=== PATIENT | male | born 1945 | race Caucasian/White ===

== ENCOUNTER 2018-12-27 12:48 | Emergency (ER) | payer MEDICARE, BC ==
[2018-12-27 12:54] VITALS: BP 133/65
--- NOTE | 2018-12-27 13:01 | ED Physician Documentation ---
PD HPI OPHTHO - Stated complaint Stated Complaint: R EYE IRRITATION - Chief complaint Chief Complaint: Heent - History obtained from History obtained from: Patient - History of Present Illness Timing - onset: Other (He noted painless discoloration of the white of the eye laterally about 2 days ago. His vision is not affected. He does not remember specific injury.) Review of Systems Constitutional: reports: Reviewed and negative Eyes: denies: Loss of vision, Decreased vision, Photophobia, Discharge, Irritation PD PAST MEDICAL HISTORY - Allergies Allergies/Adverse Reactions: Allergies Allergy/AdvReac Type Severity Reaction Status Date / Time No Known Drug Allergies Allergy Verified 12/27/18 12:54 PD ED PE NORMAL - Vitals Vital signs reviewed: Yes - General General: Alert and oriented X 3, No acute distress - HEENT HEENT: PERRL, EOMI, Other (There is a right eye subconjunctival hemorrhage, there is no flourescein uptake of the cornea.) - Neck Neck: Supple, no meningeal sign, No bony TTP - Neuro Neuro: Alert and oriented X 3, Normal speech Results - Vitals Vitals: Vital Signs - 24 hr 12/27/18 12:51 Temperature 36.8 C Heart Rate 53 L Respiratory 18 Rate Blood Pressure 133/65 H O2 Saturation 99 Oxygen O2 Source Room air Departure - Departure Disposition: 01 Home, Self Care Clinical Impression: Subconjunctival hemorrhage of right eye Condition: Good Record reviewed to determine appropriate education?: Yes Instructions: ED Eye Injury Subconj Hemorrhage
== END 2018-12-27 13:07 | disposition home or self-care (01) ==
LOC: ED 12:48
DX: H11.31 Conjunctival hemorrhage, right eye (principal)
CPT/HCPCS: 99282

== ENCOUNTER 2020-01-24 09:04 | Outpatient (CLI) | payer MEDICARE, BC | END 2020-01-24 09:05 | disposition EMS.NT | LOC: EMS 09:04 | PROVIDERS: ATTEND Surgery | DX: R42 Dizziness and giddiness (principal) ==

== ENCOUNTER 2021-08-19 17:48 | Emergency (ER) | payer MEDICARE, BC ==
[2021-08-19 18:02] VITALS: BP 134/77
[2021-08-19] MEDS ORDERED: TETANUS/DIPHTHERIA/PERTUSSIS 0.5 ML SYRINGE IM ONE (18:37)
--- NOTE | 2021-08-19 18:55 | ED Physician Documentation ---
History of Present Illness - Stated complaint Stated Complaint: RT HAND LAC/FALL - Chief complaint Chief Complaint: Laceration - Additonal information Additional information: 75-year-old male Comes in the emergency department for evaluation of pain on the palm of his right hand After ground-level fall when he was playing pickle ball. Did not strike his head or lose consciousness. He does have a 2 cm laceration on the palm between the ring and small finger. Uncertain of last tetanus Review of Systems Constitutional: denies: Fever, Chills Respiratory: reports: Reviewed and negative GI: reports: Reviewed and negative : reports: Reviewed and negative Skin: reports: Laceration (s) Musculoskeletal: reports: Extremity pain PD PAST MEDICAL HISTORY - Present Medications Home Medications: Ambulatory Orders Medication Instructions Recorded Confirmed Gabapentin [Neurontin] 300 mg PO TID 08/19/21 08/19/21 Lisinopril [Zestril] 20 mg PO DAILY 08/19/21 08/19/21 Metoprolol Succinate [Kapspargo 50 mg PO DAILY 08/19/21 08/19/21 Sprinkle] Morphine Sulfate [Morphine Sulfate 30 mg PO BID 08/19/21 08/19/21 ER] Sertraline [Zoloft] 25 mg PO DAILY 08/19/21 08/19/21 dexAMETHasone [Decadron] 4 mg PO DAILY 08/19/21 08/19/21 oxyCODONE [Roxicodone] 5 mg PO Q6HR PRN 08/19/21 08/19/21 - Allergies Allergies/Adverse Reactions: Allergies Allergy/AdvReac Type Severity Reaction Status Date / Time No Known Drug Allergies Allergy Verified 08/19/21 18:01 - Social History Does the pt smoke?: No Smoking Status: Never smoker PD ED PE EXPANDED - General General: Alert, No acute distress - Extremities Extremities: Right hand (2 cm laceration palm between small and ring finger. normal grasp. 2+ radial pulse) Results - Vitals Vitals: Vital Signs - 24 hr 08/19/21 17:58 Temperature 36.1 C L Heart Rate 61 Respiratory 16 Rate Blood Pressure 134/77 H O2 Saturation 99 Oxygen O2 Source Room air - Rads (name of study) right hand Radiology: Final report received (No acute fracture or dislocation) Procedures - Laceration (location) right palm Length in cm: 2.5 Wound type: Irregular, Into subcut fat Neurovascular status: Sensory intact, Motor intact Tendon involvement: Tendon intact Anesthesia: Lidocaine 1% with epi Wound preparation: Chlorhexadine, Irrigated copiously NS, Debrided moderately Deep layer closure: # sutures - enter number Skin layer closure: Interrupted, Size #-0 - enter number (4), Sutures - enter # (4) Other: No complications, Neurovascular intact, Dressing applied, Tetanus booster given PD MEDICAL DECISION MAKING - ED course Complexity details: considered differential, d/w patient ED course: 75-year-old male presents emergency department for evaluation of a right hand laceration sustained when falling on an asphalt court while playing pickle ball. He is right-hand dominant. Tetanus was updated today. He did have a macerated 2.5 cm laceration on the palm near the base of the small and ring finger. This was closed with 4 sutures. Routine care and emergent return precautions discussed Departure - Departure Disposition: 01 Home, Self Care Clinical Impression: Laceration of right hand Qualifiers: Encounter type: initial encounter Foreign body presence: without foreign body Qualified Code(s): S61.411A - Laceration without foreign body of right hand, initial encounter Condition: Stable Record reviewed to determine appropriate education?: Yes Instructions: ED Laceration Hand Comments: Edgardo you were seen today in the emergency department for evaluation of a laceration in the palm of your hand. The x-ray did not show any fractures or broken bones. This was a slightly macerated wound that we are able to closed with 4 sutures. Your suture(s) should be removed in 10-14 days. In 24 hours you may remove the dressing wash gently with warm soap and water, apply any antibiotic ointment and a simple bandage. Your tetanus is up-to-date as of today. Please attempt to keep your wound clean and dry. Do not submerge it in dirty dishwater or bath water. Return to the emergency department if you have any concerns of infection such as redness, fevers milky drainage increased pain.
--- NOTE | 2021-08-19 19:02 | XRAY Report ---
PROCEDURE: Hand 3 View RT INDICATIONS: pain and laceration after fall TECHNIQUE: 3 views of the hand(s) acquired. COMPARISON: None FINDINGS: Bones: No fractures or dislocations. No suspicious bony lesions. Severe first CMC degenerative marisol nge. Degenerative change with appearance of possible old fracture is noted at the ulna styloid. Promi nent radiocarpal degenerative narrowing is present. IP areas of degenerative narrowing are also prese nt. Soft tissues: No suspicious soft tissue calcifications. IMPRESSION: No visualized acute fracture or dislocation. However, occult injury cannot be excluded. Recommend eli rt interval imaging follow-up in 7-10 days as clinically indicated for additional evaluation. Reviewed by: Eri Gonzlaez MD on 08/19/2021 7:01 PM PDT Approved by: Eri Gonzaelz MD on 08/19/2021 7:01 PM PDT Station ID: [id number]
== END 2021-08-19 19:45 | disposition home or self-care (01) ==
LOC: ED 17:48
DX: S61.411A Laceration without foreign body of right hand, initial encounter (principal); W18.30XA Fall on same level, unspecified, initial encounter; Y93.79 Activity, other specified sports and athletics
CPT/HCPCS: 12001; 90471; 99282; 99283

== ENCOUNTER 2022-02-03 07:00 | Outpatient (CLI) | payer MEDICARE, BC | END 2022-02-03 07:01 | disposition short-term general hospital (02) | LOC: EMS 07:00 | DX: R11.2 Nausea with vomiting, unspecified (principal); R53.1 Weakness; R53.81 Other malaise; R00.0 Tachycardia, unspecified | CPT/HCPCS: A0425; A0427 ==